=== PATIENT | male | born 2000 ===

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

== ENCOUNTER 2021-03-07 08:54 | Emergency (ER) | payer MEDICAID ==
[2021-03-07 09:15] VITALS: BP 139/87
== END 2021-03-07 19:18 | disposition left against medical advice (07) ==
LOC: ED 08:54
DX: J02.9 Acute pharyngitis, unspecified (principal); Z53.21 Procedure and treatment not carried out due to patient leaving prior to being seen by health care provider

== ENCOUNTER 2021-03-08 08:11 | Emergency (ER) | payer MEDICAID ==
[2021-03-08 08:21] VITALS: BP 132/87
[2021-03-08] MEDS ORDERED: IBUPROFEN 600 MG TAB PO ONE (09:43)
--- NOTE | 2021-03-08 09:53 | Emergency Department Report ---
ED General Adult HPI - General Chief complaint: Sore Throat Stated complaint: SORE THROAT Time Seen by Provider: 03/08/21 08:27 Source: patient Mode of arrival: Ambulatory Limitations: No Limitations - History of Present Illness Initial comments: 20-year-old male patient presents with his mother with complaints of sore throat x3 days pain worsens with swallowing per patient. Lozenges are not helping. He has not tried any other OTC medications. He also admits to a mild cough that is nonproductive and denies any chest pain or hemoptysis, loss of taste or smell, recent known sick contacts, or being vaccinated against COVID-19. Patient rates his throat pain as a 8/10 in severity. Patient's mother states his vaccinations are up-to-date and denies patient having any past medical history - Related Data Previous Rx's Medication Instructions Recorded Last Taken Type Nystas/Diphen/Xyl Visc/Mylanta 15 ml MM Q4H PRN 5 Days ml 06/08/17 Unknown Rx [Magic Mouthwash] Ibuprofen [Motrin 600 MG tab] 600 mg PO Q8H PRN #30 tablet 10/27/17 Unknown Rx Ibuprofen [Motrin 800 MG tab] 800 mg PO Q8HR PRN #15 tablet 03/08/21 Unknown Rx Loratadine 10 mg PO QDAY #10 tablet 03/08/21 Unknown Rx predniSONE [Deltasone] 20 mg PO BID 3 Days #6 tab 03/08/21 Unknown Rx Allergies Allergy/AdvReac Type Severity Reaction Status Date / Time penicillins Allergy Swelling Uncoded 03/08/21 08:20 ED Review of Systems ROS: Stated complaint: SORE THROAT Other details as noted in HPI Constitutional: denies: chills, diaphoresis, fever, malaise, weakness ENT: throat pain Respiratory: see HPI. denies: shortness of breath Cardiovascular: denies: chest pain Gastrointestinal: denies: nausea, vomiting, diarrhea Skin: denies: rash, lesions, change in color Neurological: denies: headache Hematological/Lymphatic: denies: swollen glands ED Past Medical Hx - Past Medical History Hx Asthma: Yes Additional medical history: h/o arrythmia, hyperlipidemia - Social History Smoking Status: Never Smoker Substance Use Type: None - Medications Home Medications: Home Medications Medication Instructions Recorded Confirmed Last Taken Type Nystas/Diphen/Xyl Visc/Mylanta 15 ml MM Q4H PRN 5 Days ml 06/08/17 Unknown Rx [Magic Mouthwash] Ibuprofen [Motrin 600 MG tab] 600 mg PO Q8H PRN #30 tablet 10/27/17 Unknown Rx Ibuprofen [Motrin 800 MG tab] 800 mg PO Q8HR PRN #15 tablet 03/08/21 Unknown Rx Loratadine 10 mg PO QDAY #10 tablet 03/08/21 Unknown Rx predniSONE [Deltasone] 20 mg PO BID 3 Days #6 tab 03/08/21 Unknown Rx ED Physical Exam - General Limitations: No Limitations General appearance: alert, in no apparent distress - Head Head exam: Present: atraumatic, normocephalic - Eye Eye exam: Present: normal appearance. Absent: scleral icterus - ENT ENT exam: Present: normal exam, normal orophraynx - Neck Neck exam: Present: normal inspection, full ROM. Absent: lymphadenopathy - Respiratory Respiratory exam: Present: normal lung sounds bilaterally. Absent: respiratory distress - Cardiovascular Cardiovascular Exam: Present: regular rate, normal rhythm - Neurological Exam Neurological exam: Present: alert, oriented X3 - Psychiatric Psychiatric exam: Present: normal affect, normal mood - Skin Skin exam: Present: warm, dry, intact, normal color. Absent: rash ED Course Vital Signs 03/08/21 03/08/21 08:20 09:51 Temperature 98.8 F Pulse Rate 92 H Respiratory 20 Rate Blood Pressure 132/87 O2 Sat by Pulse 94 99 Oximetry ED Medical Decision Making - Lab Data Lab Results 03/08/21 Range/Units Unknown Group A Strep Rapid Negative (Negative) - Medical Decision Making 20-year-old male patient presents with his mother with complaints of sore throat x3 days pain worsens with swallowing per patient. Lozenges are not helping. He has not tried any other OTC medications. He also admits to a mild cough that is nonproductive and denies any chest pain or hemoptysis, loss of taste or smell, recent known sick contacts, or being vaccinated against COVID-19. Patient rates his throat pain as a 8/10 in severity. Patient's mother states his vaccinations are up-to-date and denies patient having any past medical history Rapid strep is negative. Lung exam is clear. Recommend outpatient COVID-19 testing within the next 24 to 48 hours and self quarantine until further instructed. Will treat patient for viral pharyngitis for now. His vitals are within normal limits, he is well-appearing, he is stable for discharge home. Strict return precautions were discussed in detail patient verbalizes understanding Critical care attestation.: If time is entered above; I have spent that time in minutes in the direct care of this critically ill patient, excluding procedure time. ED Disposition Clinical Impression: Acute viral pharyngitis Disposition: HOME / SELF CARE / HOMELESS Is pt being admited?: No Condition: Stable Instructions: Pharyngitis, Grip-pq-Ielt Prescriptions: predniSONE [Deltasone] 20 mg PO BID 3 Days #6 tab Loratadine 10 mg PO QDAY #10 tablet Ibuprofen [Motrin 800 MG tab] 800 mg PO Q8HR PRN #15 tablet PRN Reason: pain Referrals: PRIMARY CARE, [Primary Care Provider] - 3-5 Days [facility] [Provider Group] - 3-5 Days Forms: Work/School Release Form(ED)
== END 2021-03-08 11:12 | disposition home or self-care (01) ==
LOC: ED 08:11
DX: J02.8 Acute pharyngitis due to other specified organisms (principal); B97.89 Other viral agents as the cause of diseases classified elsewhere; J45.909 Unspecified asthma, uncomplicated; Z79.899 Other long term (current) drug therapy; Z88.0 Allergy status to penicillin
CPT/HCPCS: 87116; 87430; 99283